=== PATIENT | male | born 1940 | race Caucasian/White ===

== ENCOUNTER 2021-12-10 18:09 | Observation (INO) ==
[2021-12-10] MEDS ORDERED: Ondansetron 4 MG/2 ML VIAL IVP PRN (23:08)
[2021-12-10] MEDS ORDERED: Acetaminophen 325 MG TABLET PO PRN (23:08)
[2021-12-10] MEDS ORDERED: Melatonin 3 MG TABLET PO PRN (23:08)
[2021-12-10] MEDS ORDERED: *HR* Promethazine 25 MG/ML VIAL IM PRN (23:08)
[2021-12-10] MEDS ORDERED: Naloxone 0.4 MG/ML INJ IVP PRN (23:08)
[2021-12-11] MEDS ORDERED: *HR* Dextrose 50 % in Water (Syg) 50 ML SYRINGE IVP PRN (00:19)
[2021-12-11] MEDS ORDERED: D5% in Water 1,000 ML IVC PRN (00:19)
[2021-12-11] MEDS ORDERED: Dextrose Gel 15 GM/37.5 ML TUBE PO PRN ×2 (00:19)
[2021-12-11] MEDS: Apixaban 5 MG TABLET PO SCH ×3 (00:20→20:22)
[2021-12-11 00:43] LABS: Basophils % 0.6 %; Eosinophils # 0.1 K/mcL (0.0-0.6); Hematocrit 45.1 % (37.5-50.1); Hemoglobin 14.7 g/dL (12.9-16.9); Immature Granulocytes % 0.1 % (0-4); Lymphocytes # 1.4 K/mcL (0.6-4.6); Lymphocytes % 20.7 %; Mean Corpuscular HGB Conc 32.6 g/dL (31.6-35.5); Mean Corpuscular Hemoglobin 27.8 pg (28.0-33.3); Mean Corpuscular Volume 85.4 fL (83.0-100.0); Monocytes # 0.6 K/mcL (0.0-1.3); Neutrophils # 4.8 K/mcL (1.6-8.9); Platelet Count 188 K/mcL (140-400); Red Blood Count 5.28 M/mcL (4.19-5.50); Red Cell Distribution Width 14.6 % (11.5-14.5); Segmented Neutrophils % 68.6 %
[2021-12-11 01:02] LABS: Calcium 9.9 mg/dL (8.6-10.3); Chol/HDL Ratio 3.2 (0-4.9); Magnesium 1.8 mg/dL (1.6-2.6); Potassium 4.3 mEq/L (3.5-5.1)
[2021-12-11 04:52] LABS: Bacteria,Urine Few per hpf (None-Few); Bilirubin,Urine Negative (Negative); Blood,Urine Large (Negative); Budding Yeast,Urine Many per hpf (None Seen); Clarity,Urine Ex.Turbid (Clear); Color,Urine Yellow (Yellow); Glucose,Urine (UA) Normal (Normal); Ketones,Urine Negative (Negative); Leukocyte Esterase,Urine Large (Negative); Nitrite,Urine Positive (Negative); Protein,Urine 100 mg/dL (Neg-Trace); RBC,Urine TNTC per hpf (0-3); Specific Gravity,Urine 1.015 (1.010-1.025); Squamous Epithelial Cell,Urine Few per hpf (None-Few); Urobilinogen,Urine Normal (Normal); WBC,Urine TNTC per hpf (0-3)
[2021-12-11] MEDS ORDERED: DilTIAZem CD (24hr) 120 MG CAP.ER.24H PO SCH (06:00)
[2021-12-11] MEDS: DilTIAZem CD (24hr) 120 MG CAP.ER.24H PO SCH (06:03)
[2021-12-11] MEDS: Insulin LISPRO 300 UNITS/3 ML VIAL SUBQ SCH ×3 (07:57→16:14)
[2021-12-11] MEDS: amLODIPine 5 MG TABLET PO SCH (08:30)
[2021-12-11] MEDS: Aspirin 81 MG TAB.CHEW PO SCH (08:31)
[2021-12-11] MEDS: Magnesium Oxide 400 MG TABLET PO SCH (08:31)
[2021-12-11] MEDS: Gabapentin 300 MG CAPSULE PO SCH ×3 (08:32→20:22)
[2021-12-11] MEDS ORDERED: *HR* Metoprolol 5 MG/5 ML VIAL IVP ONE (15:35)
[2021-12-11] MEDS: lisinopriL 20 MG TABLET PO SCH (16:13)
[2021-12-11] MEDS ORDERED: Insulin LISPRO 300 UNITS/3 ML VIAL SUBQ SCH (21:00)
[2021-12-12 06:49] VITALS: BP 150/91; PULSE 99; TEMP 97.8; O2SAT 99
[2021-12-12] MEDS: Insulin LISPRO 300 UNITS/3 ML VIAL SUBQ SCH (07:25)
[2021-12-12] MEDS: Gabapentin 300 MG CAPSULE PO SCH (07:55)
[2021-12-12] MEDS: lisinopriL 20 MG TABLET PO SCH (07:55)
[2021-12-12] MEDS: amLODIPine 5 MG TABLET PO SCH (07:55)
[2021-12-12] MEDS: Aspirin 81 MG TAB.CHEW PO SCH (07:55)
[2021-12-12] MEDS: Magnesium Oxide 400 MG TABLET PO SCH (07:56)
[2021-12-12] MEDS: DilTIAZem CD (24hr) 120 MG CAP.ER.24H PO SCH (07:56)
[2021-12-12] MEDS: Apixaban 5 MG TABLET PO SCH (07:56)
[2021-12-12 08:56] LABS: Calcium 10.1 mg/dL (8.6-10.3); Potassium 3.9 mEq/L (3.5-5.1)
[2021-12-12] MEDS ORDERED: DilTIAZem CD (24hr) 180 MG CAP.ER.24H PO SCH (09:00)
== END 2021-12-12 13:05 | disposition home or self-care (01) ==
LOC: 3BNU → SUATTDRO 22:21
PROVIDERS: ADMIT Internal Medicine; ATTEND Internal Medicine